=== PATIENT | male | born 1995 | race African-American/Black ===

== ENCOUNTER 2018-08-11 16:01 | Emergency (ER) | payer MEDICAID, SELFPAY ==
[2018-08-11 16:36] LABS: #Basophils 0.1 thou/uL (0.0-0.2); #Lymphocytes 1.4 thou/uL (1.20-3.40); #Monocytes 0.6 thou/uL (0.11-0.59); #Neutrophils 7.8 thou/uL (1.40-6.50); %Basophils 0.9 % (0.0-1.0); %Eosinophils 0.2 % (0.0-10.0); %Lymphocytes 14.3 % (21.0-51.0); %Monocytes 6.4 % (0.0-10.0); %Neutrophils 78.1 % (42.0-75.0); Hemoglobin 14.8 g/dL (14.0-18.0); Mean Corpuscular HGB CONC 31.9 g/dL (32.0-36.0); Mean Corpuscular Hemoglobin 29.8 pg (27.0-31.0); Mean Corpuscular Volume 93.2 fL (78.0-98.0); Mean Platelet Volume 6.6 fL (7.4-10.4); Platelet Count 417 thou/uL (130-400); Red Blood Cell (RBC) Count 4.96 mill/uL (4.70-6.10); White Blood Cell (WBC) Count 9.9 thou/uL (4.8-10.8)
[2018-08-11 16:40] LABS: INR-International Normal Ratio 1.1; PTT 24.3 SEC (22.9-36.1); Prothrombin Time 13.8 SEC (12.0-14.7)
[2018-08-11] MEDS ORDERED: Sodium Chloride 0.9% 1,000 ML ONE (16:43)
[2018-08-11 16:52] LABS: ALT (SGPT) 38 U/L (8-55); AST (SGOT) 15 U/L (5-34); Albumin 4.1 g/dL (3.5-5.0); Alcohol 114 mg/dL (Less than 10); Alkaline Phosphatase 73 U/L (40-150); Anion Gap 14 mmol/L (10-20); BUN (Urea Nitrogen) 9 mg/dL (8.9-20.6); Bilirubin, Total 0.8 mg/dL (0.2-1.2); Calc. Creatinine Clearance 0 mL/min (70-130); Calcium 9.2 mg/dL (7.8-10.44); Carbon Dioxide 25 mmol/L (22-29); Chloride 102 mmol/L (98-107); Estimated GFR-MDRD Greater than 90; Globulin 2.9 g/dL (2.4-3.5); Glucose 102 mg/dL (70-105); Lipase 10 U/L (8-78); Potassium 3.4 mmol/L (3.5-5.1); Sodium 138 mmol/L (136-145)
[2018-08-11] MEDS ORDERED: Fentanyl 100 MCG/2 ML VIAL ONE (17:05)
[2018-08-11] MEDS ORDERED: Ondansetron HCl/PF 4 MG/2 ML Vial ONE (17:05)
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
== END 2018-08-11 18:14 | disposition short-term general hospital (02) ==
LOC: NAV ERS 16:01
DX: S02.32XA Fracture of orbital floor, left side, initial encounter for closed fracture (principal); S01.112A Laceration without foreign body of left eyelid and periocular area, initial encounter; S05.02XA Injury of conjunctiva and corneal abrasion without foreign body, left eye, initial encounter; F10.129 Alcohol abuse with intoxication, unspecified; F31.9 Bipolar disorder, unspecified; F17.220 Nicotine dependence, chewing tobacco, uncomplicated; V44.5XXA Car driver injured in collision with heavy transport vehicle or bus in traffic accident, initial encounter
CPT/HCPCS: 36415; 70450; 70486; 71045; 72125; 80053; 80307; 83690; 85025; 85610; 85730; 94760; 96361; 96374; 96375; J2405; J3010; J7050

== ENCOUNTER 2021-04-07 15:13 | Emergency (ER) | payer SELFPAY | END 2021-04-07 15:37 | disposition home or self-care (01) | LOC: NAV ERS 15:13 | DX: R19.7 Diarrhea, unspecified (principal); R11.2 Nausea with vomiting, unspecified; F17.290 Nicotine dependence, other tobacco product, uncomplicated | CPT/HCPCS: 99283 ==